=== PATIENT | male | born 1985 | race Caucasian/White ===

== ENCOUNTER 2019-05-30 16:21 | Emergency (ER) | payer BC ==
[2019-05-30 16:32] VITALS: BP 113/80; PULSE 81; TEMP 98.6; BMI 27.3
[2019-05-30] MEDS ORDERED: KETOROLAC TROMETHAMINE 60 MG/2 ML VIAL IM ONE (16:32)
[2019-05-30] MEDS ORDERED: LIDOCAINE 5% TOPICAL PATCH TP ONE (16:32)
[2019-05-30] MEDS ORDERED: METHOCARBAMOL 500 MG TABLET PO ONE (16:32)
[2019-05-30] MEDS ORDERED: METHOCARBAMOL 500 MG TABLET ONE (16:34)
[2019-05-30] MEDS ORDERED: KETOROLAC TROMETHAMINE 60 MG/2 ML VIAL ONE (16:35)
[2019-05-30] MEDS ORDERED: LIDOCAINE 5% TOPICAL PATCH ONE (16:35)
--- NOTE | 2019-05-30 16:59 | PDOC ---
Documentation entered by Susan Her SCRIBE, acting as scribe for Sandra Veronica DO. Sandra Veronica DO: This documentation has been prepared by the Taina david Joy, SCRIBE, under my direction and personally reviewed by me in its entirety. I confirm that the documentation accurately reflects all work, treatment, procedures, and medical decision making performed by me. History of Present Illness - General Chief Complaint: Pain Stated Complaint: RIGHT NECK PAIN 7 DAYS History Source: Patient - History of Present Illness Initial Comments: 05/30/19 16:46 The patient is a 34 year old male with no significant past medical history who presents to the ED with neck pain for 7 days. As per patient he was lifting a heavy mat (~50 lbs) at work when he heard a noise around his shoulder and neck. The patient reports that his pain is located on the right side of his neck towards the middle and radiation down to the right shoulder. The patient states that his pain worsens when leaning back. Patient endorses that he has been ignoring it for a couple of days and was taking aleve and flexeril (took 2, last was 3 days ago) with no relief which promoted his arrival to the ED. The patient adds that he last took medication for pain yesterday and has not taken anything today. The patient denies, headache, dizziness, numbness or tingling. Denies any blurry vision or change in vision. Allergies: Soy, peanuts, seafood. PCP: Dr. Colmenares Past History - Past Medical History Allergies/Adverse Reactions: Allergies Allergy/AdvReac Type Severity Reaction Status Date / Time soy Allergy Severe Difficulty Verified 05/30/19 16:24 Breathing PEANUTS Allergy Severe Difficulty Uncoded 05/30/19 16:24 Breathing SEAFOOD Allergy Severe Difficulty Uncoded 05/30/19 16:23 Breathing Home Medications: Ambulatory Orders Methocarbamol [Robaxin -] 500 mg PO BID PRN #10 tablet 05/30/19 - Psycho Social/Smoking Cessation Hx Smoking Status: Yes Smoking History: Former smoker Number of Cigarettes Smoked Daily: 0 Hx Alcohol Use: Yes Drug/Substance Use Hx: No Substance Use Type: Alcohol Review of Systems - Review of Systems Able to Perform ROS?: Yes Comments:: 05/30/19 16:48 GENERAL/CONSTITUTIONAL: No fever or chills. No weakness. HEAD, EYES, EARS, NOSE AND THROAT: +Right side to middle neck pain. No change in vision. No ear pain or discharge. No sore throat. CARDIOVASCULAR: No chest pain or shortness of breath. RESPIRATORY: No cough, wheezing, or hemoptysis. GASTROINTESTINAL: No nausea, vomiting, diarrhea or constipation. MUSCULOSKELETAL: +Myalgia. No joint swelling or pain. No neck or back pain. SKIN: No rash NEUROLOGIC: No headache, vertigo, loss of consciousness, or change in strength/ sensation. *Physical Exam - Vital Signs Last Vital Signs Temp Pulse Resp BP Pulse Ox 98.6 F 81 16 113/80 100 05/30/19 16:22 05/30/19 16:22 05/30/19 16:22 05/30/19 16:22 05/30/19 16:22 - Physical Exam General Appearance: Yes: Nourished, Appropriately Dressed. No: Apparent Distress HEENT: positive: EOMI, Normal Voice Neck: positive: Supple, Tender lateral (R paraspinal ttp, R trapezius and rhomboid ttp), Other (FROM of the neck). negative: Decreased range of motion, Tender midline Respiratory/Chest: positive: Lungs Clear, Normal Breath Sounds. negative: Respiratory Distress Cardiovascular: positive: Regular Rhythm, Regular Rate, S1, S2. negative: Edema Gastrointestinal/Abdominal: positive: Soft. negative: Guarding, Rebound, Tenderness Musculoskeletal: positive: Normal Inspection, Muscle Spasm (R lateral neck and upper back). negative: CVA Tenderness, Decreased Range of Motion, Vertebral Tenderness Extremity: positive: Normal Capillary Refill, Normal Inspection, Normal Range of Motion. negative: Swelling, Calf Tenderness Integumentary: positive: Normal Color, Dry, Warm Neurologic: positive: Fully Oriented, Alert, Normal Mood/Affect, Normal Response , Motor Strength 5/5. negative: Sensory Deficit ED Treatment Course - Medications Given in the ED: ED Medications Discontinued Medications Generic Name Dose Route Start Last Admin Trade Name Freq PRN Reason Stop Dose Admin Ketorolac Tromethamine 60 mg 05/30/19 16:32 05/30/19 16:41 Toradol Injection - IM 05/30/19 16:33 60 mg ONCE ONE Administration Lidocaine 1 patch 05/30/19 16:32 05/30/19 16:42 Lidoderm Patch - TP 05/30/19 16:33 1 patch ONCE ONE Administration Methocarbamol 1,000 mg 05/30/19 16:32 05/30/19 16:41 Robaxin - PO 05/30/19 16:33 1,000 mg ONCE ONE Administration Medical Decision Making - Medical Decision Making 05/30/19 16:57 a/p: 34yo male with R lateral neck pain x 1 week -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 -pt has tried tylenol/motrin/flexeril at home -no midline ttp -neurovasc intact -no fc -pt with FROM of ther cervical spine -muscle spasm to R upper back and neck -will medicate with robaxin and toradol and monitor and reassess 05/30/19 17:42 pt states feeling much better FROM of the neck discussed pain control at home discussed all reasons to return to the ED answered all questions stable for dc to home Discharge - Discharge Information Problems reviewed: Yes Clinical Impression/Diagnosis: Neck pain, Muscle spasm Condition: Stable Disposition: HOME - Admission No - Additional Discharge Information Prescriptions: Methocarbamol [Robaxin -] 500 mg PO BID PRN #10 tablet PRN Reason: Muscle Spasms - Follow up/Referral Referrals: Godfrey Medeiros MD [Staff Physician] - Joaquin Colón DO [Staff Physician] - - Patient Discharge Instructions Patient Printed Discharge Instructions: DI for Neck Pain, DI for Muscle Spasm Additional Instructions: Please take tylenol or motrin as needed for pain. Please soak in an epson salt bath. Please take the robaxin as prescribed. Please do not mix with alcohol. Please make a follow up appointment with your PMD. Please return to the ED with any further concerns or complaints. - Post Discharge Activity Work/Back to School Note: Back to Work
[2019-05-30] MEDS ORDERED: LIDOCAINE PATCH REMOVAL MC SCH (22:00)
== END 2019-05-30 18:00 | disposition home or self-care (01) ==
LOC: FER 16:21
PROC: 3E0233Z Introduction of Anti-inflammatory into Muscle, Percutaneous Approach (ICD-10-PCS; principal; 2019-05-30)
DX: M54.2 Cervicalgia (principal); R25.2 Cramp and spasm; Z91.013 Allergy to seafood; Z91.010 Allergy to peanuts; Z91.018 Allergy to other foods
CPT/HCPCS: 99282-25

== ENCOUNTER 2019-06-27 15:30 | Emergency (ER) | payer BC, OTHER ==
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
[2019-06-27 15:44] VITALS: BP 134/83; PULSE 67; TEMP 97.9; BMI 28.7
[2019-06-27] MEDS ORDERED: ACETAMINOPHEN 500 MG TABLET (FP) PO ONE (17:22)
[2019-06-27] MEDS ORDERED: ACETAMINOPHEN 500 MG TABLET (FP) ONE ×2 (17:25→18:36)
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
== END 2019-06-27 20:18 | disposition home or self-care (01) ==
LOC: JERFT 15:30
DX: S06.0X0A Concussion without loss of consciousness, initial encounter (principal); V47.6XXA Car passenger injured in collision with fixed or stationary object in traffic accident, initial encounter; Y92.488 Other paved roadways as the place of occurrence of the external cause; Y93.89 Activity, other specified; Y99.8 Other external cause status; Z91.013 Allergy to seafood; Z91.010 Allergy to peanuts; Z91.02 Food additives allergy status
CPT/HCPCS: 70450-TC; 72050-TC-FY; 72125-TC; 99281-25